=== PATIENT | female | born 1960 | race Caucasian/White ===

== ENCOUNTER → 2020-02-05 08:12 | Outpatient (CLI) | payer OTHER, MEDICARE, SELFPAY ==
--- NOTE | ~2020-02-05 | XR_ITS ---
EXAMINATION: XR finger 1st LT min 2V INDICATION: Chronic pain of the metacarpophalangeal joint of the first finger TECHNIQUE: Three views of the left first finger are obtained. COMPARISON: None available FINDINGS: Bone alignment is normal. There is no fracture. There is [id number] osteoarthritis at the first carpometacarpal and metacarpophalangeal joints. The soft tissues are unremarkable. IMPRESSION: 1. Osteoarthritis without acute osseous abnormality. Reviewed, dictated and finalized at location A. T TECHNICIAN
== END ==
PROVIDERS: PCP Family Medicine; Visit Provider Nurse Practitioner Family
DX: M19.042 Primary osteoarthritis, left hand (principal)
CPT/HCPCS: 73140